=== PATIENT | female | born 1965 | race Two or more races ===

== ENCOUNTER 2017-12-10 21:46 | Emergency (ER) | payer OTHER ==
[~2017-12-10] VITALS: Ht 152.4 cm; Wt 61.2 kg
[2017-12-10] MEDS ORDERED: SYNTHROID25 MCG ORAL (22:38)
[2017-12-10] MEDS ORDERED: Albuterol/Ipratropium 3ml neb HHN ONE (23:00)
[2017-12-10] MEDS ORDERED: PREDNISONE20 MG ORAL (23:09)
[2017-12-10] MEDS ORDERED: PSEUDOEPHEDRINE60 MG PO (23:09)
--- NOTE | 2017-12-10 23:10 | Emergency Room Report ---
History of Present Illness General Chief Complaint: Upper Respiratory Illness Source: Patient Present Illness HPI This is a 52-year-old female with no significant past medical history. She presents with chief complaint of 9 days of cough and congestion. Also with fever initially but none now. Has no nausea vomiting diarrhea. Said her primary care doctor 3 days ago. Chest x-ray unremarkable. Was placed on antibiotics and inhaler. Also with cough medicine. Has not any better. Now with increasing left ear pain. Also with sore throat. Worse with exertion. Allergies: Coded Allergies: LEVOFLOXACIN (Verified Allergy, Unknown, 12/10/17) Patient History Past Medical History: see triage record, old chart reviewed Past Surgical History: other Pertinent Family History: none Social History: Denies: smoking Now: No Immunizations: other Reviewed Nursing Documentation: PMH: Agreed, PSxH: Agreed Nursing Documentation-PMH Past Medical History: No History, Except For Hx Cardiac Problems: No - Hypothyroidism Review of Systems Eye: Denies: eye pain, blurred vision ENT: Reports: ear pain, nose congestion, Denies: throat swelling Respiratory: Reports: cough, shortness of breath Cardiovascular: Denies: chest pain, palpitations Gastrointestinal: Denies: abdominal pain, diarrhea, nausea, vomiting Musculoskeletal: Denies: back pain, joint pain Skin: Denies: rash Neurological: Denies: headache, numbness Endocrine: Denies: increased thirst, increased urine Hematologic/Lymphatic: Denies: easy bruising All Other Systems: negative except mentioned in HPI Physical Exam Vital Signs Date Time Temp Pulse Resp B/P (MAP) Pulse Ox O2 Delivery O2 Flow Rate FiO2 12/10/17 22:33 98.2 87 16 119/63 97 Room Air vitals normal Sp02 EP Interpretation: reviewed, normal General Appearance: well appearing, no apparent distress, alert Head: normocephalic, atraumatic Eyes: bilateral eye PERRL, bilateral eye EOMI ENT: hearing grossly normal, normal pharynx, other - Bilateral TM with effusion Neck: full range of motion, supple, no meningismus Respiratory: chest non-tender, lungs clear, normal breath sounds, inspiration - Coughing fits with inspiration Cardiovascular #1: regular rate, rhythm, no murmur Gastrointestinal: normal bowel sounds, non tender, no mass, no organomegaly, no bruit, non-distended Musculoskeletal: back normal, gait/station normal, normal range of motion Psychiatric: mood/affect normal Skin: warm/dry Medical Decision Making Diagnostic Impression: Primary Impression: Upper respiratory infection Qualified Codes: J06.9 - Acute upper respiratory infection, unspecified Additional Impression: Acute otitis media with effusion ER Course Patient with upper worse or infection and bronchospasm. She started on antibiotics. She's only taking inhaler once a day he said every 4 hours. Will give her a decongestant and and is on. No evidence of sepsis, pneumonia, ACS to name a few. We'll discharge home. Last Vital Signs Date Time Temp Pulse Resp B/P (MAP) Pulse Ox O2 Delivery O2 Flow Rate FiO2 12/10/17 22:33 98.2 87 16 119/63 97 Room Air Status: improved Disposition: HOME, SELF-CARE Condition: Stable Scripts Pseudoephedrine Hcl* (SUDAFED*) 60 Mg Tablet 60 MG PO Q6H, #20 TAB Prov: CHANCE STEWART M.D. 12/10/17 Prednisone* (PREDNISONE*) 20 Mg Tablet 60 MG ORAL DAILY, #12 TAB Prov: CHANCE TSEWART M.D. 12/10/17 Patient Instructions: Upper Respiratory Infection, Adult Additional Instructions: Followup with your DrFelice in 7 days. Increase inhaler 2 to puffs every 4 hours as needed. Return if worse. CHANCE STEWART M.D. Dec 10, 2017 23:09
[2017-12-10 23:30] VITALS: BP 119/63
== END 2017-12-10 23:25 | disposition home or self-care (01) ==
LOC: EMR 23:00
DX: J06.9 Acute upper respiratory infection, unspecified (principal); H65.193 Other acute nonsuppurative otitis media, bilateral; E03.9 Hypothyroidism, unspecified; Z88.1 Allergy status to other antibiotic agents
CPT/HCPCS: 94640; 94664; 99284; J7512; J7620

== ENCOUNTER 2018-02-16 08:43 | Emergency (ER) | payer OTHER ==
[~2018-02-16] VITALS: Ht 152.4 cm; Wt 63.0 kg
[~2018-02-16 08:43] MED LIST: PREDNISONE20 MG ORAL; PSEUDOEPHEDRINE60 MG PO; SYNTHROID25 MCG ORAL
[2018-02-16 09:04] VITALS: BP 126/82
--- NOTE | 2018-02-16 09:13 | Emergency Room Report ---
History of Present Illness General Chief Complaint: Abdominal Pain Source: Patient Present Illness HPI Patient presents in emergency department today complaining of worsening left lower chest and upper abdominal pain that has been going on for a couple weeks. However it is very severe now that she can't sleep on it. The pain is worse with palpation in the left lower rib and in her flank and lower back as well as left upper abdomen. She complains of nausea no vomiting. Of note patient recently received endoscopy and colonoscopy and had the diagnosis of H. pylori. She completed her H. pylori antibiotic treatment a couple weeks ago. She still has some loose stools twice a day. No other complaints are noted. She denies any fever or shortness of breath. Denies any dysuria or urinary frequency or vaginal discharge. Symptoms noted to be severe and patient is in tears. Patient states that she saw her liner replacer because she had flulike symptoms for a couple weeks. Her liner replacer states that given the persistent pain and a CT scan would be indicated. Patient is currently trying to obtain approval for CT scan. Symptoms noted to be severe. No other modifying factors. No other associated signs and symptoms. No other complaints were noted. Allergies: Coded Allergies: LEVOFLOXACIN (Verified Allergy, Unknown, 12/10/17) Patient History Past Medical History: other - gastritis, H. pylori Past Surgical History: none Pertinent Family History: none Social History: Denies: smoking, alcohol use, drug use Reviewed Nursing Documentation: PMH: Agreed; PSxH: Agreed Nursing Documentation-PMH Hx Cardiac Problems: No - Hypothyroidism Review of Systems All Other Systems: negative except mentioned in HPI Physical Exam Vital Signs Date Time Temp Pulse Resp B/P (MAP) Pulse Ox O2 Delivery O2 Flow Rate FiO2 02/16/18 08:51 97.9 101 17 126/82 96 Room Air 97.9 Sp02 EP Interpretation: reviewed, normal General Appearance: alert, moderate distress Head: atraumatic Eyes: bilateral eye normal inspection ENT: normal ENT inspection, hearing grossly normal, normal voice Neck: normal inspection, full range of motion, supple, no bony tend Respiratory: normal inspection, lungs clear, normal breath sounds, no respiratory distress, no retraction, no wheezing, other - tender left lower rib laterally and p Cardiovascular #1: regular rate, rhythm, no edema Gastrointestinal: normal inspection, normal bowel sounds, soft, no guarding, no hernia, other - tender left upper quadrant Genitourinary: other - tender left fk Musculoskeletal: normal inspection, back normal, normal range of motion Neurologic: normal inspection, alert, responsive, speech normal Psychiatric: normal inspection, judgement/insight normal, depressed affect, anxious Skin: normal inspection, normal color, no rash Medical Decision Making Diagnostic Impression: Primary Impression: Diverticulitis Additional Impression: Acute costochondritis ER Course Patient presents emergency department today complaining of chest pain.Patient presented to the emergency department today complaining of chest pain. Differential diagnoses include acute coronary syndrome, pulmonary embolism, pneumothorax, chest wall pain, pleurisy, pericarditis, acute anxiety reaction just to name a few. Given the severity of the patient's presentation I felt this is a highly complex patient. This patient required extensive workup. CBC , chemistry, EKG, chest x-ray, cardiac enzymes, liver profile were all obtained. Patient chest pain was very palpable. However was reproducible with deep inspiration. Therefore CT scan was obtained which is negative. Patient laboratory work was also normal. Patient also had left upper quadrant abdominal pain. Difficult considerations include hepatitis gastritis diverticulitis and kidney stones. Patient's CT scan shows evidence of diverticulitis. Therefore patient was started on pain medications and antibiotics. Recommend outpatient follow-up with GI.Patient is advised to follow up with primary doctor in 2-3 days and return the emergency room for any worsening symptoms and as needed. Labs Test 02/16/18 08:55 02/16/18 09:20 Urine Color Pale yellow Urine Appearance Clear Urine pH 6 (4.5-8.0) Urine Specific [place] 1.005 (1.005-1.035) Urine Protein Negative (NEGATIVE) Urine Glucose (UA) Negative (NEGATIVE) Urine Ketones Negative (NEGATIVE) Urine Occult Blood Negative (NEGATIVE) Urine Nitrite Negative (NEGATIVE) Urine Bilirubin Negative (NEGATIVE) Urine Urobilinogen Normal MG/DL (0.0-1.0) Urine Leukocyte Esterase 1+ (NEGATIVE) Urine RBC 0-2 /HPF (0 - 2) Urine WBC 0-2 /HPF (0 - 2) Urine Squamous Epithelial Cells Occasional /LPF Urine Bacteria Occasional /HPF (NONE) Urine HCG, Qualitative Negative (NEGATIVE) White Blood Count 9.4 K/UL (4.8-10.8) Red Blood Count 4.71 M/UL (4.20-5.40) Hemoglobin 13.9 G/DL (12.0-16.0) Hematocrit 40.0 % (37.0-47.0) Mean Corpuscular Volume 85 FL (80-99) Mean Corpuscular Hemoglobin 29.6 PG (27.0-31.0) Mean Corpuscular Hemoglobin Concent 34.9 G/DL (32.0-36.0) Red Cell Distribution Width 11.4 % (11.6-14.8) Platelet Count 312 K/UL (150-450) Mean Platelet Volume 7.0 FL (6.5-10.1) Neutrophils (%) (Auto) 75.6 % (45.0-75.0) Lymphocytes (%) (Auto) 16.4 % (20.0-45.0) Monocytes (%) (Auto) 6.6 % (1.0-10.0) Eosinophils (%) (Auto) 0.3 % (0.0-3.0) Basophils (%) (Auto) 1.1 % (0.0-2.0) Sodium Level 138 MMOL/L (136-145) Potassium Level 4.0 MMOL/L (3.5-5.1) Chloride Level 103 MMOL/L (98-107) Carbon Dioxide Level 27 MMOL/L (21-32) Anion Gap 8 mmol/L (5-15) Blood Urea Nitrogen 11 mg/dL (7-18) Creatinine 0.7 MG/DL (0.55-1.30) Estimat Glomerular Filtration Rate > 60 mL/min (>60) Glucose Level 104 MG/DL (74-106) Calcium Level 9.6 MG/DL (8.5-10.1) Total Bilirubin 0.5 MG/DL (0.2-1.0) Aspartate Amino Transf (AST/SGOT) 16 U/L (15-37) Alanine Aminotransferase (ALT/SGPT) 35 U/L (12-78) Alkaline Phosphatase 66 U/L (46-116) Total Protein 8.1 G/DL (6.4-8.2) Albumin 4.0 G/DL (3.4-5.0) Globulin 4.1 g/dL Albumin/Globulin Ratio 1.0 (1.0-2.7) Lipase 149 U/L (73-393) CT/MRI/US Diagnostic Results CT/MRI/US Diagnostic Results : Imaging Test Ordered: CT chest: Negative, Ct abdomen and pelvis positive diverticulitios Last Vital Signs Date Time Temp Pulse Resp B/P (MAP) Pulse Ox O2 Delivery O2 Flow Rate FiO2 02/16/18 08:51 97.9 101 17 126/82 96 Room Air 97.9 Status: improved Disposition: HOME, SELF-CARE Condition: Stable Scripts Docusate Sodium* (COLACE*) 100 Mg Capsule 100 MG ORAL TWICE A DAY for 15 Days, CAP Prov: AROLDO JIMENEZ M.D. 02/16/18 Ibuprofen* (MOTRIN*) 600 Mg Tablet 600 MG ORAL Q8H PRN for For Pain, #30 TAB 0 Refills Prov: AROLDO JIMENEZ M.D. 02/16/18 Hydrocodone Bit/Acetaminophen 5-325* (NORCO 5-325*) 1 Each Tablet 1 TAB ORAL Q6H PRN for For Pain, #10 TAB 0 Refills Prov: AROLDO JIMENEZ M.D. 02/16/18 Metronidazole* (FLAGYL*) 500 Mg Tablet 500 MG ORAL BID for 10 Days, TAB Prov: AROLDO JIMENEZ M.D. 02/16/18 Trimethoprim/Sulfamethoxazole 160/800* (BACTRIM DS TABLET*) 1 Each Tablet 1 TAB ORAL Q12H, #20 TAB 0 Refills Prov: AROLDO JIMENEZ M.D. 02/16/18 AROLDO JIMENEZ M.D. Feb 16, 2018 09:13
[2018-02-16] MEDS ORDERED: Ketorolac 30mg Inj IV ONE (09:15)
[2018-02-16 09:42] LABS: APPEARANCE,URINE CLEAR; BILIRUBIN, URINE NEGATIVE (NEGATIVE); COLOR,URINE PALE YELLOW; GLUCOSE, URINE (UA) NEGATIVE (NEGATIVE); KETONES,URINE NEGATIVE (NEGATIVE); LEUKOCYTE ESTERASE ,URINE 1+ (NEGATIVE); NITRITE,URINE NEGATIVE (NEGATIVE); PH,URINE 6 (4.5-8.0); PROTEIN,URINE NEGATIVE (NEGATIVE); UROBILINOGEN,URINE NORMAL MG/DL (0.0-1.0)
[2018-02-16 09:48] LABS: ANION GAP 8 mmol/L (5-15); BLOOD UREA NITROGEN 11 mg/dL (7-18); CALCIUM 9.6 MG/DL (8.5-10.1); CARBON DIOXIDE 27 MMOL/L (21-32); CHLORIDE 103 MMOL/L (98-107); CREATININE 0.7 MG/DL (0.55-1.30); SODIUM 138 MMOL/L (136-145)
[2018-02-16 09:53] LABS: ALANINE AMINOTRANSFERASE 35 U/L (12-78); ALKALINE PHOSPHATASE 66 U/L (46-116); ASPARTATE AMINO TRANSFERASE 16 U/L (15-37); BILIRUBIN,TOTAL 0.5 MG/DL (0.2-1.0)
[2018-02-16 09:54] LABS: BASOPHILS % (AUTO) 1.1 % (0.0-2.0); EOSINOPHILS % (AUTO) 0.3 % (0.0-3.0); HEMOGLOBIN 13.9 G/DL (12.0-16.0); LYMPHOCYTES % (AUTO) 16.4 % (20.0-45.0); MEAN CORPUSCULAR VOLUME 85 FL (80-99); MONOCYTES % (AUTO) 6.6 % (1.0-10.0); NEUTROPHILS % (AUTO) 75.6 % (45.0-75.0); PLATELET COUNT 312 K/UL (150-450); RED BLOOD COUNT 4.71 M/UL (4.20-5.40); RED CELL DISTRIBUTION WIDTH 11.4 % (11.6-14.8); WHITE BLOOD COUNT 9.4 K/UL (4.8-10.8)
--- NOTE | 2018-02-16 11:40 | Diagnostic Imaging Report ---
ndication: Ascites chest pain x2 months Technique: IV administration nonionic contrast. Spiral acquisitions obtained from the lung bases to the lung apices. Multiplanar and 3-D reconstructions were generated. Total dose length product 1379 mGycm. CTDIvol(s) 21.01,14.79 mGy. Dose reduction achieved using automated exposure control Comparison: none Findings: There is good quality opacification of the pulmonary arteries. No intraluminal filling defects or other findings to suggest acute pulmonary embolus demonstrated. No pulmonary arterial dilatation demonstrated. No right ventricular dilatation demonstrated. No evidence of thoracic aortic aneurysm or dissection. The lungs demonstrate some posterior dependent atelectatic changes, are otherwise clear. No infiltrates, effusions, masses, or nodules. Included portions of the thyroid are unremarkable. No axillary chest wall mass or adenopathy. There is minimal anterior wall pericardial thickening or fluid. No mediastinal or hilar lymphadenopathy. The included upper abdominal anatomy is remarkable for a subcentimeter low-attenuation lesion in segment 8 of the liver which is too small to characterize, most likely a benign cyst. The bones are unremarkable. Impression: Negative for acute pulmonary embolus or other acute thoracic pathology The CT scanner at [facility] is accredited by the [employer] and the scans are performed using protocols designed to limit radiation exposure to as low as reasonably achievable to attain images of sufficient resolution adequate for diagnostic evaluation.
[2018-02-16 11:45] VITALS: BP 126/82
--- NOTE | 2018-02-16 11:47 | Diagnostic Imaging Report ---
Clinical Indication: Left flank pain x2 months Technique: No oral contrast utilized, per emergency room physician request IV administration nonionic contrast. Venous phase spiral acquisition obtained through the abdomen and pelvis. Multiplanar reconstructions were generated. Total dose length product 1379 mGycm. CTDIvol(s) 21.01,14.79 mGy. Dose reduction achieved using automated exposure control Comparison: none Findings: Lack of enteric contrast administration limits assessment of the GI tract. There is colonic diverticulosis. There is inflammatory change of the pericolonic fat surrounding a proximal descending colonic diverticulum. No discrete fluid collection or extraluminal gas demonstrated. There is mild wall thickening of the colon in the vicinity of the inflammatory change. The appendix is normal. There is a broad-based fat-containing umbilical hernia. No small bowel distention. No free or loculated intraperitoneal air or fluid is evident. Liver demonstrates a subcentimeter low-attenuation lesion in segment 8. The gallbladder, bile ducts, pancreas, spleen, adrenals, kidneys are all unremarkable. No retroperitoneal or mesenteric mass or adenopathy. Uterus demonstrates some small fibroids. No pelvic mass or adenopathy. There is equivocal mild bladder wall thickening, probably an artifact of under distention. The bones are unremarkable. The lung bases demonstrate minimal posterior dependent atelectatic changes Impression: Positive for acute uncomplicated diverticulitis of the proximal descending colon Equivocal mild bladder wall thickening, probably an artifact of under distention but cystitis a possibility. Correlate with clinical findings. Subcentimeter low-attenuation lesion, too small to characterize, in segment 8 of the liver. Most likely benign simple cyst or bile or hamartoma. No further follow-up necessary Findings phoned to Dr. Peters in the emergency room at the time of interpretation The CT scanner at [facility] is accredited by the [employer] and the scans are performed using protocols designed to limit radiation exposure to as low as reasonably achievable to attain images of sufficient resolution adequate for diagnostic evaluation.
[2018-02-16] MEDS ORDERED: BACTRIM DS TAB1 EAC1 ORAL (11:49)
[2018-02-16] MEDS ORDERED: METRONIDAZOLE500 MG ORAL (11:49)
[2018-02-16] MEDS ORDERED: COLACE100 MG ORAL (11:50)
[2018-02-16] MEDS ORDERED: NORCO 5-325 TA1 EACH ORAL (11:50)
[2018-02-16] MEDS ORDERED: IBUPROFEN600 MG ORAL (11:50)
[2018-02-16 12:11] VITALS: BP 124/78
== END 2018-02-16 12:15 | disposition home or self-care (01) ==
LOC: EMR 09:26
DX: K57.32 Diverticulitis of large intestine without perforation or abscess without bleeding (principal); M94.0 Chondrocostal junction syndrome [Tietze]; Z88.1 Allergy status to other antibiotic agents
CPT/HCPCS: 36415; 71275; 74177; 80053; 81003; 81025; 83690; 85025; 96374; 96375; 99284; J1885; J2405; Q9967

== ENCOUNTER 2018-04-01 00:32 | Emergency (ER) | payer OTHER ==
[~2018-04-01] VITALS: Ht 152.4 cm; Wt 62.6 kg
[~2018-04-01 00:32] MED LIST changes: +BACTRIM DS TAB1 EAC1 ORAL; +COLACE100 MG ORAL; +IBUPROFEN600 MG ORAL; +METRONIDAZOLE500 MG ORAL; +NORCO 5-325 TA1 EACH ORAL
[2018-04-01 00:49] VITALS: BP 148/103
[2018-04-01] MEDS ORDERED: Morphine Sulfate 4mg/ml Inj ONE (00:58)
[2018-04-01] MEDS ORDERED: Morphine Sulfate 4mg/ml Inj IM ONE (01:00)
[2018-04-01] MEDS ORDERED: Bacitracin Oint UD TOPIC ONE ×2 (01:33→01:45)
[2018-04-01] MEDS ORDERED: IBUPROFEN600 MG ORAL (01:51)
[2018-04-01] MEDS ORDERED: HYDROCODON-ACE1 EA15 ORAL (01:51)
--- NOTE | 2018-04-01 01:52 | Emergency Room Report ---
History of Present Illness General Chief Complaint: Upper Extremity Injury Source: Patient, Family Member Present Illness HPI This a 52-year-old female who is right-hand dominant. She presents with chief complaint of a fall with multiple injuries. She tripped and fell on directly onto her right elbow. Also complaining of knee pain and left thumb and right wrist pain. No loss of consciousness. No head injury. Pain is 9 out of 10. Worse with movement. No syncope. No palpitation or dizziness. Allergies: Coded Allergies: LEVOFLOXACIN (Verified Allergy, Unknown, 12/10/17) Patient History Past Medical History: see triage record, old chart reviewed Past Surgical History: other Pertinent Family History: none Social History: Denies: smoking Now: No Immunizations: other Reviewed Nursing Documentation: PMH: Agreed; PSxH: Agreed Nursing Documentation-PMH Hx Cardiac Problems: No - Hypothyroidism Hx Gastrointestinal Problems: Yes - H PYLORI Review of Systems Eye: Denies: eye pain, blurred vision ENT: Denies: ear pain, nose congestion, throat swelling Respiratory: Denies: cough, shortness of breath Cardiovascular: Denies: chest pain, palpitations Gastrointestinal: Denies: abdominal pain, diarrhea, nausea, vomiting Musculoskeletal: Reports: joint pain, muscle pain; Denies: back pain Skin: Denies: rash Neurological: Denies: headache, numbness Endocrine: Denies: increased thirst, increased urine Hematologic/Lymphatic: Denies: easy bruising All Other Systems: negative except mentioned in HPI Physical Exam Vital Signs Date Time Temp Pulse Resp B/P (MAP) Pulse Ox O2 Delivery O2 Flow Rate FiO2 04/01/18 00:38 97.9 104 20 148/103 Room Air 97.9 vitals unremarkable Sp02 EP Interpretation: reviewed, normal General Appearance: well appearing, no apparent distress, alert Head: normocephalic, atraumatic Eyes: bilateral eye PERRL, bilateral eye EOMI ENT: hearing grossly normal, normal pharynx Neck: full range of motion, supple, no meningismus Respiratory: chest non-tender, lungs clear, normal breath sounds Cardiovascular #1: regular rate, rhythm, no murmur Gastrointestinal: normal bowel sounds, non tender, no mass, no organomegaly, no bruit, non-distended Musculoskeletal: back normal, gait/station normal, other - Right elbow: Tenderness over the olecranon. Decreased range of motion secondary to pain. Nontender over shoulder. Neurologic: alert, oriented x3 Psychiatric: mood/affect normal Skin: warm/dry Procedures Splinting Splinting : Consent: Verbal Location: Right elbow Splint: posterior long Pre-Proc Neuro Vasc Exam: normal Post-Proc Neuro Vasc Exam: normal Patient Tolerated: Well Complications: None Medical Decision Making Diagnostic Impression: Primary Impression: Elbow fracture, right Qualified Codes: S42.401A - Unspecified fracture of lower end of right humerus , initial encounter for closed fracture Additional Impressions: Left thumb sprain Qualified Codes: S63.602A - Unspecified sprain of left thumb, initial encounter Right wrist sprain Qualified Codes: S63.501A - Unspecified sprain of right wrist, initial encounter Contusion of knee, left Qualified Codes: S80.02XA - Contusion of left knee, initial encounter ER Course Patient presents with a fall with soft tissue injury. I suspect a right elbow may be radial head fracture because of the anterior sail sign. Is an area of the most pain for patient. Patient is splinted and sling given. No evidence of dislocation. We'll discharge home. Other X-Ray Diagnostic Results Other X-Ray Diagnostic Results #1: X-Ray ordered: right elbow x-rays # of Views/Limited Vs Complete: 3 View Indication: Pain EP Interpretation: Yes Interpretation: no dislocation, no soft tissue swelling, other - anterior sail sign Impression: Other - anterior sail sign. r/o frx of radial head Electronically Signed by: Nando Fernando MD Other X-Ray Diagnostic Results #2: X-Ray ordered: Right wrist xrays # of Views/Limited Vs Complete: 3 View Indication: Pain EP Interpretation: Yes Interpretation: no dislocation, no soft tissue swelling, no fractures Impression: No acute disease Electronically Signed by: Nando Fernando MD Other X-Ray Diagnostic Results #3: X-Ray ordered: left thumb xrays. # of Views/Limited Vs Complete: 3 View Indication: Pain EP Interpretation: Yes Interpretation: no dislocation, no soft tissue swelling, no fractures Impression: No acute disease Electronically Signed by: Nando Fernando MD Other X-Ray Diagnostic Results #4: X-Ray ordered: left knee xrays Impression: Other - Pt refused xrays. Last Vital Signs Date Time Temp Pulse Resp B/P (MAP) Pulse Ox O2 Delivery O2 Flow Rate FiO2 6/1/18 01:02 97.9 04/01/18 00:49 104 20 148/103 Room Air Status: improved Disposition: HOME, SELF-CARE Condition: Stable Scripts Ibuprofen* (MOTRIN*) 600 Mg Tablet 600 MG ORAL THREE TIMES A DAY, #30 TAB 0 Refills Prov: NANDO FERNANDO M.D. 04/01/18 Hydrocodone/Acetaminophen 5-325* (HYDROCODONE/ACETAMINOPHEN 5-325*) 1 Each Tablet 1 TAB ORAL Q6H PRN for For Pain, #30 TAB 0 Refills Prov: NANDO FERNANDO M.D. 04/01/18 Referrals: NOT CHOSEN [facility]/,REFERRING (PCP) Additional Instructions: Follow-up with your doctor within 7 days. You will need a referral to see orthopedic doctor. Return if symptom worsen. NANDO FERNANDO M.D. Apr 01, 2018 01:52
[2018-04-01 02:28] VITALS: BP 141/91
--- NOTE | 2018-04-01 10:24 | Diagnostic Imaging Report ---
Indication: Pain Comparison: None Findings: 4 views of the right thumb obtained. No fracture or malalignment identified. IMPRESSION: No acute injury identified
--- NOTE | 2018-04-01 10:25 | Diagnostic Imaging Report ---
Indication: Pain Findings: 3 views of the right elbow were obtained. No acute fractures, malalignment, erosions or periostitis are identified. Bone mineralization is within normal limits. Soft tissues are unremarkable. Impression: Negative examination of the elbow.
--- NOTE | 2018-04-01 10:25 | Diagnostic Imaging Report ---
Indication: pain Right hand pain Findings: 3 views of the right hand were obtained. Normal bony mineralization and alignment are demonstrated. No acute fractures, erosions, or periosteal reaction are seen. Soft tissues are unremarkable. Impression: No acute findings.
== END 2018-04-01 02:29 | disposition home or self-care (01) ==
LOC: EMR 01:21
DX: S42.401A Unspecified fracture of lower end of right humerus, initial encounter for closed fracture (principal); S63.602A Unspecified sprain of left thumb, initial encounter; S63.501A Unspecified sprain of right wrist, initial encounter; S80.02XA Contusion of left knee, initial encounter; W01.0XXA Fall on same level from slipping, tripping and stumbling without subsequent striking against object, initial encounter; Y92.9 Unspecified place or not applicable
CPT/HCPCS: 29125; 73080; 73130; 73140; 96372; 99284; J2270

== ENCOUNTER 2019-06-07 12:44 | Emergency (ER) | payer OTHER ==
[~2019-06-07] VITALS: Ht 162.6 cm; Wt 68.0 kg
[~2019-06-07 12:44] MED LIST changes: +HYDROCODON-ACE1 EA15 ORAL
[2019-06-07] MEDS ORDERED: SYNTHROID88 MCG ORAL (12:51)
[2019-06-07 12:55] VITALS: BP 126/86
--- NOTE | 2019-06-07 12:55 | NUR ---
ED Nurse Note: PT WALKED IN TO ER TODAY FROM HOME. AXO4. PT C/O LOWER ABDOMINAL PAIN, 7/10, AND CHILLS X 2 DAYS AGO. PT DENIES NAUSEA, VOMITING, OR DIARRHEA. ABDOMEN NONDISTENDED BUT TENDER TO PALPATION IN LOWER QUADRANTS. ACTIVE BOWEL SOUNDS IN ALL QUADRANTS. LAST BM X THIS AM WHICH PT STATES WAS FORMED.
[2019-06-07] MEDS ORDERED: Isovue-300 100ml vial INJ PRN (13:00)
[2019-06-07] MEDS ORDERED: Morphine Sulfate 4mg/ml Inj (IV USE ONLY) IVP ONE ×2 (13:00→15:45)
[2019-06-07] MEDS ORDERED: Unasyn 3gm Inj IV ONE (13:00)
--- NOTE | 2019-06-07 13:11 | Emergency Room Report ---
History of Present Illness General Chief Complaint: Abdominal Pain Source: Patient Present Illness HPI 53-year-old female history of diverticulitis presents with left lower quadrant pain that started 2 days prior to arrival, she endorses an achy pain no aggravating or alleviating factors she does endorse some constipation no fever no chills, no chest pain no shortness of breath, patient presents with constant left lower quadrant pain severity is moderate Allergies: Coded Allergies: LEVOFLOXACIN (Verified Allergy, Unknown, 12/10/17) Patient History Past Medical History: see triage record Last Menstrual Period: menopause Reviewed Nursing Documentation: PMH: Agreed; PSxH: Agreed Nursing Documentation-PMH Past Medical History: No History, Except For Hx Gastrointestinal Problems: Yes - Diverticulitis Review of Systems All Other Systems: negative except mentioned in HPI Physical Exam Vital Signs Date Time Temp Pulse Resp B/P (MAP) Pulse Ox O2 Delivery O2 Flow Rate FiO2 06/07/19 12:48 98.4 104 18 130/93 (105) 99 Sp02 EP Interpretation: reviewed, normal General Appearance: well appearing, no apparent distress, alert Head: normocephalic, atraumatic Eyes: bilateral eye PERRL, bilateral eye EOMI ENT: uvula midline, moist mucus membranes Neck: supple, thyroid normal, supple/symm/no masses Respiratory: lungs clear, no respiratory distress, no retraction, no accessory muscle use Cardiovascular #1: normal peripheral pulses, regular rate, rhythm, no edema, no gallop, no murmur Gastrointestinal: soft, no guarding, no rebound, tenderness - Left Lower quadrant tenderness Musculoskeletal: normal inspection Neurologic: alert, oriented x3 Psychiatric: mood/affect normal Skin: no rash, warm/dry Medical Decision Making Diagnostic Impression: Primary Impression: Diverticulitis ER Course Patient with left lower quadrant pain concerning for most likely diverticulitis , patient with a history of diverticulitis constipation. Differential includes appendicitis, SBO, UTI Labs, pain, control, fluid resuscitation Patient signed out to Dr. Peters at 2:43pm patient pending CT Laboratory Tests Test 06/07/19 13:50 White Blood Count 7.7 K/UL (4.8-10.8) Red Blood Count 4.74 M/UL (4.20-5.40) Hemoglobin 13.5 G/DL (12.0-16.0) Hematocrit 39.5 % (37.0-47.0) Mean Corpuscular Volume 83 FL (80-99) Mean Corpuscular Hemoglobin 28.4 PG (27.0-31.0) Mean Corpuscular Hemoglobin Concent 34.1 G/DL (32.0-36.0) Red Cell Distribution Width 13.4 % (11.6-14.8) Platelet Count 308 K/UL (150-450) Mean Platelet Volume 6.3 FL (6.5-10.1) L Neutrophils (%) (Auto) 63.6 % (45.0-75.0) Lymphocytes (%) (Auto) 29.3 % (20.0-45.0) Monocytes (%) (Auto) 5.1 % (1.0-10.0) Eosinophils (%) (Auto) 0.6 % (0.0-3.0) Basophils (%) (Auto) 1.4 % (0.0-2.0) Prothrombin Time 10.4 SEC (9.30-11.50) Prothrombin Time INR 1.0 (0.9-1.1) PTT 29 SEC (23-33) Sodium Level 139 MMOL/L (136-145) Potassium Level 3.9 MMOL/L (3.5-5.1) Chloride Level 104 MMOL/L (98-107) Carbon Dioxide Level 27 MMOL/L (21-32) Anion Gap 8 mmol/L (5-15) Blood Urea Nitrogen 10 mg/dL (7-18) Creatinine 0.8 MG/DL (0.55-1.30) Estimate Glomerular Filtration Rate > 60 mL/min (>60) Glucose Level 91 MG/DL (74-106) Calcium Level 9.2 MG/DL (8.5-10.1) Total Bilirubin 0.6 MG/DL (0.2-1.0) Aspartate Amino Transferase (AST) 16 U/L (15-37) Alanine Aminotransferase (ALT) 26 U/L (12-78) Alkaline Phosphatase 58 U/L (46-116) Total Protein 7.6 G/DL (6.4-8.2) Albumin 3.8 G/DL (3.4-5.0) Globulin 3.8 g/dL Albumin/Globulin Ratio 1.0 (1.0-2.7) Lipase 92 U/L (73-393) Chest X-Ray Diagnostic Results Chest X-Ray Diagnostic Results : Chest X-Ray Ordered: Yes # of Views/Limited/Complete: 1 View Indication: Other - preop EP Interpretation: Yes Interpretation: no consolidation, no effusion, no pneumothorax, no acute cardiopulmonary disease Impression: No acute disease Electronically Signed by: Javed Edwards MD Last Vital Signs Date Time Temp Pulse Resp B/P (MAP) Pulse Ox O2 Delivery O2 Flow Rate FiO2 06/07/19 12:48 98.4 104 18 130/93 (105) 99 Disposition: HOME, SELF-CARE Condition: Stable Scripts Amoxicillin/Potassium Clav 875-125* (AUGMENTIN 875-125 TABLET*) 1 Each Tablet 1 TAB ORAL TWICE A DAY, #20 TAB Prov: Javed Edwards MD 06/07/19 Referrals: [facility] Patient Instructions: Abdominal Pain, Adult, Diverticulitis Additional Instructions: The patient was provided with discharge instructions, notified to follow-up with a primary care doctor and or specialist in the next 24-48 hours, and to return to the ED if they have worsening of their symptoms. Please note that this report is being documented using DRAGON technology. This can lead to erroneous entry secondary to incorrect interpretation by the dictating instrument. Javed Edwards MD Jun 07, 2019 13:11
--- NOTE | 2019-06-07 13:45 | NUR ---
ED Nurse Note: XRAY AT BEDSIDE.
[2019-06-07 14:02] LABS: BASOPHILS % (AUTO) 1.4 % (0.0-2.0); EOSINOPHILS % (AUTO) 0.6 % (0.0-3.0); HEMATOCRIT 39.5 % (37.0-47.0); HEMOGLOBIN 13.5 G/DL (12.0-16.0); LYMPHOCYTES % (AUTO) 29.3 % (20.0-45.0); MEAN CORPUSCULAR VOLUME 83 FL (80-99); MONOCYTES % (AUTO) 5.1 % (1.0-10.0); NEUTROPHILS % (AUTO) 63.6 % (45.0-75.0); PLATELET COUNT 308 K/UL (150-450); RED BLOOD COUNT 4.74 M/UL (4.20-5.40); RED CELL DISTRIBUTION WIDTH 13.4 % (11.6-14.8); WHITE BLOOD COUNT 7.7 K/UL (4.8-10.8)
[2019-06-07 14:19] LABS: ANION GAP 8 mmol/L (5-15); BLOOD UREA NITROGEN 10 mg/dL (7-18); CALCIUM 9.2 MG/DL (8.5-10.1); CARBON DIOXIDE 27 MMOL/L (21-32); CHLORIDE 104 MMOL/L (98-107); CREATININE 0.8 MG/DL (0.55-1.30); POTASSIUM 3.9 MMOL/L (3.5-5.1); SODIUM 139 MMOL/L (136-145)
[2019-06-07 14:23] LABS: ALANINE AMINOTRANSFERASE 26 U/L (12-78); ALBUMIN 3.8 G/DL (3.4-5.0); ALKALINE PHOSPHATASE 58 U/L (46-116); ASPARTATE AMINO TRANSFERASE 16 U/L (15-37); BILIRUBIN,TOTAL 0.6 MG/DL (0.2-1.0)
[2019-06-07] MEDS ORDERED: AUGMENTIN 875-1 EAC1 ORAL (14:43)
[2019-06-07] MEDS ORDERED: Morphine Sulfate 4mg/ml Inj (IV USE ONLY) ONE (15:50)
--- NOTE | 2019-06-07 16:07 | NUR ---
ED Nurse Note: BLOOD TRANSFUSION STARTED. JOANNE RN NOTIFIED THAT PT WILL GO UP IN AFTER 15-MINUTE VITALS LONG THERE IS NO REACTION.
--- NOTE | 2019-06-07 16:39 | NUR ---
ED Nurse Note: PT LAYING PEACEFULLY IN BED IN NAD. AOX4. PRESCRIPTION AND DISCHARGE PAPERWORK EXPLAINED TO PT. PT VERBALIZES UNDERSTANDING AND ALL QUESTIONS ANSWERED. PRESCRIPTION AND DISCHARGE PAPERWORK GIVEN TO PT, IV AND ID WRISTBAND REMOVED. PT WALKED OUT OF ER WITH STEADY GAIT AND ALL BELONGINGS.
[2019-06-07] MEDS ORDERED: COLACE100 MG ORAL (16:40)
[2019-06-07] MEDS ORDERED: ZOFRAN4 MG ORAL (16:56)
--- NOTE | 2019-06-07 17:02 | NUR ---
ED Nurse Note: PT WAS EXITING ER WHEN SHE STARTED TO FEEL NAUSEOUS. ZOFRAN ODT ADMINISTERED PER DR JIMENEZ ORDER. PT LAYING IN BED IN NAD.
--- NOTE | 2019-06-07 18:23 | NUR ---
ED Nurse Note: [facility] CALLED TWICE. SENT TO [employer] BY MANAGEMENT LEAD BOTH TIMES.
[2019-06-07] MEDS ORDERED: Metoclopramide 10mg/2ml Inj IVP ONE (18:30)
--- NOTE | 2019-06-07 19:10 | NUR ---
HAND-OFF: REPORT GIVEN TO CRISTI CM.
[2019-06-07] MEDS ORDERED: Metoclopramide 10mg/2ml Inj ONE (19:12)
--- NOTE | 2019-06-07 19:20 | NUR ---
ED Nurse Note: Report given to CRISTI Mallory from [place] comm. [facility]
[2019-06-07 20:00] VITALS: BP 122/82
--- NOTE | 2019-06-07 20:00 | NUR ---
ER DISCHARGE NOTE: Patient decided to not transfer to [facility], signed out ASHUTOSH JONES aware. pt is aox4, on room air, with stable vital signs. pt was given dc and prescription instructions, pt was able to verbalize understanding, pt id band and iv site removed without complications. pt is able to ambulate with steady gait. pt took all belongings. Pt's son took her home
--- NOTE | 2019-06-09 08:14 | Diagnostic Imaging Report ---
CT ABDOMEN AND PELVIS WITH CONTRAST INDICATION: Abdominal pain TECHNIQUE: Continuous helical transaxial imaging of the abdomen and pelvis was obtained from the lung bases to the pubic symphysis during intravenous contrast administration. Coronal 2-D reformats were also obtained. Study obtained in a Siemens sensation [address] Automatic Exposure Control was utilized. Total Dose length Product (DLP): 789.[address] Dose Index Volume (CTDIvol): 14.79 mGy COMPARISON: CT abdomen and pelvis dated 02/16/2018 FINDINGS: Lower chest:: Small hiatal hernia. Hepatobiliary:: Unremarkable. Genitourinary:: Myomatous uterus Adrenals:: Unremarkable. Pancreas:: Unremarkable Gastrointestinal:: No evidence of obstruction. Appendix is normal. There is extensive colonic diverticulosis. There is short segment sigmoid and distal descending colonic wall thickening with adjacent pericolonic fat stranding. Spleen: : Unremarkable Peritoneum:: No evidence of free air or ascites. Bones and soft tissues:: There are multilevel discogenic degenerative changes of the visualized spine. IMPRESSION: Uncomplicated acute sigmoid diverticulitis. The CT scanner at [facility] is accredited by the [employer] and the scans are performed using protocols designed to limit radiation exposure to as low as reasonably achievable to attain images of sufficient resolution adequate for diagnostic evaluation.
--- NOTE | 2019-06-09 08:14 | Diagnostic Imaging Report ---
Indication: Reason For Exam: PREOP Technique: Single AP view of the chest. Comparison: CTA chest dated 02/16/2018 Findings: The cardiomediastinal silhouette is within normal limits. Low lung volumes leading to bronchovascular crowding. There is no focal consolidation, pneumothorax or pleural effusion. Osseous structures demonstrate no acute abnormality. IMPRESSION: No acute cardiac pulmonary process
== END 2019-06-07 16:45 | disposition home or self-care (01) ==
LOC: EMR 14:10
DX: K57.92 Diverticulitis of intestine, part unspecified, without perforation or abscess without bleeding (principal); Z88.8 Allergy status to other drugs, medicaments and biological substances
CPT/HCPCS: 36415; 71045; 74177; 80053; 83690; 85025; 85610; 85730; 96361; 96374; 96375; 96376; 99284; J0295; J2270; J2405; J2765; Q9967